=== PATIENT | female | born 1975 | race Caucasian/White ===

== ENCOUNTER 2024-07-06 10:46 | Outpatient (AMB) | payer OTHER, SELFPAY ==
--- NOTE | 2024-07-06 10:50 | MHC.OFFVIS ---
Vital Signs 07/06/24 10:56 Height 5 ft 6.5 in Weight 223 lb 2 oz BMI 35.5 BP 146/74 H Blood Pressure Location Rt brachial Position Sitting Pulse 75 Pulse Source Pulse Oximeter Pulse Oximetry (%) 96 Oxygen Delivery Method Room Air Intake Visit Reasons: Athralgia of multiple sites Intake Note: Pain today 07/27 Mathematical Statistician Required: No Accompanied by: Self / Same As Patient Allergies codeine Allergy (Unknown, Verified 07/06/24 10:55) Vomiting hydrocodone Allergy (Unknown, Verified 07/06/24 10:55) Vomiting prochlorperazine [From Compazine] Allergy (Unknown, Verified 07/06/24 11:04) Unknown HPI Comments Details: The patient is a 49-year-old female presenting with chronic peripheral neuropathy. She reports that the issue began several years ago following a sudden inability to walk, which was associated with a diagnosis of acute pernicious anemia. Over the subsequent days, symptoms progressed to involve her hands, resulting in a claw-like deformity which later improved. Currently, she experiences persistent numbness and the inability to feel both in her hands and feet. The neuropathy extends from her hands to the proximity of her wrist area and from her feet up to above the ankles. The sensation is described as a constant firing, with periodic zapping and a zinging quality, that she likens to a fire storm during acute episodes. Despite the use of a cane, she continues to struggle with ambulation and concentration due to accompanying fogginess from medications. Her history includes previous bilateral ankle fractures without surgical intervention and ongoing chronic migraines effectively managed with modern injectables, topiramate and Fiorecet with good relief. She has tried multiple treatments including Lyrica and oxycodone for neuropathy, with the latter providing limited relief primarily aiding sleep. Physical therapy was initially used to assist with walking. Other attempts at relief included Epsom salt soaks and typical analgesics like ibuprofen, which primarily target other unrelated issues such as ovarian cyst-induced abdominal pain. Notably, she does not experience back pain that radiates to her extremities. There is no history of diabetes, but she is treated monthly for pernicious anemia with B12 injections. - Onset: A couple of years ago, following acute pernicious anemia diagnosis. - Quality: Firing, zapping, zinging, throbbing, shooting, sharp, cramping, burning, tingling; severe, often described as a fire storm. - Location: Hands extending to the wrists; feet extending above the ankles. - Radiation: From feet to above ankles; from hands to wrists. - Exacerbating Factors: Activity and prolonged standing. - Alleviating Factors: Lyrica, occasional oxycodone, Epsom salt soaks. B12 injections. - Interference: Limits walking without a cane, affects concentration, requires a stool in the shower. - Affect: Mood swings likely related to pain; emotional impact evident in social and academic settings. - Analgesia: Lyrica (daily), occasional oxycodone for sleep; goal to reduce pain impact and avoid fogginess. - Adverse Effects: Foggy cognition on higher Lyrica doses. - Activities of Daily Living: Difficulty with independent ambulation; uses a cane and stool for stability; impacted academic performance. - Aberrant Drug Related Behaviors: None reported. [facility] Medical History (Updated 07/06/24 @ 13:50 by CHAZ Peck) Deep venous thrombosis of both upper extremities GERD (gastroesophageal reflux disease) Diverticulitis History of kidney stones History of cerebrovascular accident Syncope and collapse Chronic vaginitis Peripheral nerve disease Idiopathic peripheral neuropathy Migraine without aura Moderate major depression Tobacco use Pernicious anemia Hyperlipidemia Surgical History H/O ovarian cystectomy Social History Alcohol intake: current Alcohol intake frequency: holidays/special occasions only Patient Tobacco Use Status: Current everyday Tobacco user Cigarette Packs Per Day: 1 Years Smoked: 34 e-Cigarette/Vaping Use: Former Use Review of Systems Const Details: - Neurological: Reports numbness, tingling, and neuropathic pain in upper and lower extremities. - Musculoskeletal: Denies radiating neck or back pain, reports historical ankle fractures. - Dermatological: Reports dry skin and eczema on hands and feet. - Reproductive: Reports multiple ovarian cysts, denies current use of alcohol. All systems reviewed & are unremarkable except as noted in HPI and below Physical Exam Vital Signs: Last Vital Signs Pulse 75 07/06/24 10:56 BP 146/74 H 07/06/24 10:56 Pulse Ox 96 07/06/24 10:56 Oxygen Delivery Method Room Air 07/06/24 10:56 BMI result Body Mass Index 35.5 General: Appears afebrile. Alert and oriented. Mood and affect appropriate. Follows and participates in conversation appropriately. Respiratory effort is unlabored. No cough. Able to transition from sit to stand unassisted. Ambulates with bilaterally normal heel strike and toe off. Neck Neck: Yes normal visual inspection, Yes full ROM, Yes no lymphadenopathy, Yes supple, No anterior neck swelling, Yes no JVD, No prominent supraclavicular fat pad and Yes prominent dorsocervical fat pad General: Yes no CVA tenderness Back/Spine/Pelvis Back: no CVA tenderness Cervical Spine: cervical ROM normal, cervical muscular tenderness and No Cervical spine tenderness Thoracic/Lumbar Spine: thoracic and lumbar spine normal to inspection, No Thoracic/lumbar spine scar(s), thoraco-lumbar ROM normal, Lasegue's sign negative, straight leg raise negative bilaterally, No thoracic spinal tenderness and No lumbar spinal tenderness Sacroiliac joints: bilaterally nontender Extrem Other: There is a decreased sensation over the soles of the feet and toes. Reports numbness, burning, tingling in both feet, worse at night time. No breaks in the skin. Dry, flaky skin to plantar surfaces of both feet, associated with eczema. No soft tissue swelling or warmth. +2 pedal pulses bilaterally. General: Yes capillary refill normal, Yes no clubbing, cyanosis or edema and Yes no calf tenderness Results Reviewed Results Reviewed: No imaging reports are available for review. Assessment & Plan Assessment & Plan (1) Chronic pain syndrome: Code(s): G89.4 - Chronic pain syndrome Category: Medical (2) Idiopathic peripheral neuropathy: Code(s): G60.9 - Hereditary and idiopathic neuropathy, unspecified Category: Medical (3) Bilateral numbness and tingling of arms and legs: Code(s): R20.0 - Anesthesia of skin; R20.2 - Paresthesia of skin Category: Medical Plan Discussed risks and benefits of different treatment options including diagnostic and epidural steroid injections, topical 8% capsaicin application and spinal cord stimulation. Patient is already exhausted conservative medical management Will try to arrange topical 8% capsaicin application for bilateral foot pain as the next step once we have confirmed availability, pending insurance clearance, to address the peripheral neuropathy. I have also introduced the possibility of a spinal cord stimulator should current management practices prove inadequate, pending psychological evaluation. Educational pamphlets on these interventions were provided to facilitate informed decision-making. We discussed the potential benefits of tapering Lyrica if pain symptoms improve with new treatments. All questions and concerns have been answered and the patient agreed with the plan. Follow up as needed. Patient was informed and verbally consented to the use of an ambient scribe for clinic note documentation during this visit. Patient Instructions: I discussed with the patient the diagnosis of peripheral neuropathy and our proposed management options, including topical capsaicin and the potential use of a spinal cord stimulator. I fully explained both treatments, covering expected outcomes, procedural details, and the need for insurance approval and psychological evaluation. Detailed brochures were provided to support decision-making. Risks and benefits of new interventions were explained, with particular focus on how these may offer better management of symptoms and a reduction in current medications. We also discussed monitoring outcomes regularly and assessing for effectiveness and possible adverse effects during follow-up visits. The patient expressed interest in proceeding, motivated by the chronicity of pain and desire for relief. Coding Level of Care Code New Pt Level 4 (29672) Diagnoses Chronic pain syndrome G89.4 Idiopathic peripheral neuropathy G60.9 Bilateral numbness and tingling of arms and legs R20.0; R20.2
[2024-07-06 10:56] VITALS: BP 146/74; PULSE 75; O2SAT 96; BMI 35.5
== END 2024-07-06 11:21 | disposition home or self-care (01) ==
LOC: HO.PMC 10:47
PROVIDERS: PCP Family Medicine; Referring Provider Family Medicine; Visit Provider Nurse Practitioner Family
DX: G89.4 Chronic pain syndrome (principal); G60.9 Hereditary and idiopathic neuropathy, unspecified; R20.0 Anesthesia of skin; R20.2 Paresthesia of skin
CPT/HCPCS: 99204

== ENCOUNTER → 2024-07-06 10:46 | Outpatient (BNVA) | payer OTHER, SELFPAY | PROVIDERS: PCP Family Medicine; Referring Provider Family Medicine; Visit Provider Nurse Practitioner Family | DX: G60.9 Hereditary and idiopathic neuropathy, unspecified (principal); G89.4 Chronic pain syndrome; R20.0 Anesthesia of skin; R20.2 Paresthesia of skin | CPT/HCPCS: 99202 ==